=== PATIENT | female | born 1965 | race Caucasian/White ===

== ENCOUNTER 2018-03-22 11:06 | Emergency (ER) | payer MEDICAID ==
[2018-03-22] MEDS: BELLADONNA/PHENOBARBITAL TAB PO (16:46)
[2018-03-22] MEDS: SOD CHLORIDE 0.9% 1,000 ML IV (16:46)
[2018-03-22] MEDS: FAMOTIDINE 20 MG INJ IV (16:46)
[2018-03-22] MEDS: ONDANSETRON 4 MG INJ IV (16:46)
[2018-03-22] MEDS: LIDOCAINE/MYLANTA 40 ML BTL PO (16:46)
[2018-03-22 16:56] LABS: ADD MAN DIFF? NO
[2018-03-22 17:01] LABS: WHITE BLOOD COUNT 7.1 10^3/ul (4.8-10.8)
[2018-03-22 17:01] LABS: BASOPHIL # 0.1 10^3/ul (0.0-0.1); BASOPHILS % 0.7 % (0.0-2.0); EOSINOPHILS # 0.5 10^3/ul (0.0-0.5); HEMATOCRIT 43.4 % (37.0-47.0); HEMOGLOBIN 14.8 g/dl (12.0-16.0); LYMPHOCYTES # 2.4 10^3/ul (0.8-2.9); LYMPHOCYTES % 34.6 % (15.0-51.0); MEAN CORPUSCULAR HEMOGLOBIN 33.6 pg (29.0-33.0); MEAN CORPUSCULAR HGB CONC 34.1 g/dl (32.0-37.0); MEAN CORPUSCULAR VOLUME 98.6 fl (82.0-101.0); MEAN PLATELET VOLUME 10.7 fl (7.4-10.4); MONOCYTE # 0.4 10^3/ul (0.3-0.9); MONOCYTES % 6.2 % (0.0-11.0); NEUTROPHIL # 3.6 10^3/ul (1.6-7.5); NEUTROPHILS % 51.4 % (39.0-77.0); PLATELET COUNT 178 10^3/UL (140-415); RED CELL DISTRIBUTION WIDTH 12.4 % (11.5-14.5)
[2018-03-22 17:20] LABS: ALANINE AMINOTRANSFERASE 139 IU/L (13-69); ALBUMIN/GLOBULIN RATIO 1.13; ALKALINE PHOSPHATASE 115 IU/L (42-121); ANION GAP 13 (5-13); ASPARTATE AMINO TRANSFERASE 196 IU/L (15-46); BILIRUBIN,INDIRECT 0.3 mg/dl (0-1.1); BILIRUBIN,TOTAL 0.3 mg/dl (0.2-1.3); BLOOD UREA NITROGEN 9 mg/dl (7-20); CALCIUM 10.1 mg/dl (8.4-10.2); CARBON DIOXIDE 31 mmol/L (21-31); CHLORIDE 99 mmol/L (97-110); CREATININE 0.55 mg/dl (0.44-1.00); Estimated GFR > 60 mL/min (>60); GLUCOSE 160 mg/dl (70-220); LIPASE 77 U/L (23-300); POTASSIUM 3.6 mmol/L (3.5-5.1); SODIUM 143 mmol/L (135-144); TOTAL PROTEIN 9.4 g/dl (6.1-8.1)
[2018-03-22 17:32] LABS: TROPONIN-I < 0.012 ng/ml (0.000-0.120)
[2018-03-22 17:35] LABS: ADD UMIC NO; UR ASCORBIC ACID NEGATIVE (NEGATIVE); UR BILIRUBIN (Dip) NEGATIVE (NEGATIVE); UR BLOOD (Dip) NEGATIVE (NEGATIVE); UR CLARITY CLEAR (CLEAR); UR COLOR COLORLESS (YELLOW); UR GLUCOSE (Dip) NEGATIVE (NEGATIVE); UR KETONES (Dip) NEGATIVE (NEGATIVE); UR LEUKOCYTE ESTERASE (Dip) NEGATIVE Leu/ul (NEGATIVE); UR NITRITE (Dip) NEGATIVE (NEGATIVE); UR SPECIFIC GRAVITY (Dip) 1.001 (1.003-1.030); UR TOTAL PROTEIN (Dip) NEGATIVE (NEGATIVE); UR UROBILINOGEN (Dip) NEGATIVE (NEGATIVE)
== END 2018-03-22 20:38 | disposition home or self-care (01) ==
LOC: E/R 11:06
DX: K75.81 Nonalcoholic steatohepatitis (NASH) (principal); R11.10 Vomiting, unspecified
CPT/HCPCS: 36415; 76705; 80053; 81003; 81025; 83690; 84484; 85025; 93005; 96361; 96374; 96375; 99285-25